=== PATIENT | male | born 1970 | race Asian ===

== ENCOUNTER 2019-08-21 01:09 | Emergency (ER) | payer MEDICAID ==
--- NOTE | 2019-08-21 12:54 | Emergency Department Report ---
ED Headache HPI - General Chief Complaint: Syncope Stated Complaint: SYNCOPAL EPISODE Time Seen by Provider: 08/21/19 12:49 Source: patient - History of Present Illness Initial Comments: 49 YO COMES TO ER COMPLAINING OF HEADACHE FOR 2 DAYS. NO N/V/PHOTOPHOBIA. PT DENIES PASSING OUT. NO INCONTINENCE. NO HX SZ. 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 PMH PTSD [facility]GERY LIVES IN CORRECTION RX RISPE. REMERON POS CIG OCC ETOH DENIES DRUGS NO TRAUMA. NO FEVER OR CHILLS. AMBULATORY AND NONTOXIC. HAS BEEN IN WAITING ROOM FOR CLOSE TO 11 HOURS ON MY EXAM. ON EXAM HE STATES PAIN IS GONE AND THERE IS NO FOCAL NEURO DEF. Allergies/Adverse Reactions: Allergies No Known Allergies Allergy (Unverified 08/21/19 14:24) ED Review of Systems ROS: Stated complaint: SYNCOPAL EPISODE Other details as noted in HPI Comment: All other systems reviewed and negative ED Past Medical Hx - Past Medical History Previous Medical History?: Yes Additional medical history: anurysm - Surgical History Past Surgical History?: Yes Additional Surgical History: facial reconstruction - Family History Family history: no significant - Social History Smoking Status: Current Every Day Smoker Substance Use Type: Alcohol ED Physical Exam - General Limitations: No Limitations General appearance: alert, in no apparent distress - Head Head exam: Present: atraumatic, normocephalic - Eye Eye exam: Present: normal appearance - ENT ENT exam: Present: mucous membranes moist - Neck Neck exam: Present: normal inspection - Respiratory Respiratory exam: Present: normal lung sounds bilaterally. Absent: respiratory distress - Cardiovascular Cardiovascular Exam: Present: regular rate, normal rhythm. Absent: systolic murmur, diastolic murmur, rubs, gallop - GI/Abdominal GI/Abdominal exam: Present: soft, normal bowel sounds - Rectal Rectal exam: Present: deferred - Extremities Exam Extremities exam: Present: normal inspection - Back Exam Back exam: Present: normal inspection - Neurological Exam Neurological exam: Present: alert, oriented X3 - Psychiatric Psychiatric exam: Present: normal affect, normal mood - Skin Skin exam: Present: warm, dry, intact, normal color. Absent: rash ED Course Vital Signs 08/21/19 01:28 Temperature 98.5 F Pulse Rate 85 Respiratory 18 Rate Blood Pressure 148/96 O2 Sat by Pulse 97 Oximetry ED Medical Decision Making - Lab Data Result diagrams: 08/21/19 13:29 08/21/19 13:29 - Radiology Data Radiology results: report reviewed, image reviewed - Medical Decision Making Labs 08/21/19 08/21/19 13:29 13:29 WBC 4.7 RBC 5.35 H Hgb 15.2 Hct 43.7 MCV 82 L MCH 28 MCHC 35 H RDW 13.5 Plt Count 180 Lymph % (Auto) 28.4 Lyman % (Auto) 13.6 H Eos % (Auto) 0.4 Baso % (Auto) 0.7 Lymph # 1.3 Lyman # 0.6 Eos # 0.0 Baso # 0.0 Seg Neutrophils % 56.9 Seg Neutrophils # 2.6 Sodium 140 Potassium 3.7 Chloride 101.6 Carbon Dioxide 23 Anion Gap 19 BUN 8 L Creatinine 0.8 Estimated GFR > 60 BUN/Creatinine Ratio 10 Glucose 86 Calcium 9.0 Total Bilirubin 0.60 AST 31 ALT 18 Alkaline Phosphatase 57 Total Protein 6.2 L Albumin 3.9 Albumin/Globulin Ratio 1.7 Vital Signs 08/21/19 01:28 Temperature 98.5 F Pulse Rate 85 Respiratory 18 Rate Blood Pressure 148/96 O2 Sat by Pulse [address] NEG LABS NOTED NO FOCAL DEFICIT ON RE-EXAM VSS DC HOME WITH FOLLOW UP WITH HIS DONNELL MD. AMBULATORY AND TAKING PO ON DC. Critical care attestation.: If time is entered above; I have spent that time in minutes in the direct care of this critically ill patient, excluding procedure time. ED Disposition Clinical Impression: Headache Disposition: DC-01 TO HOME OR SELFCARE Is pt being admited?: No Does the pt Need Aspirin: No Condition: Stable Instructions: Acute Headache (ED) Additional Instructions: motrin or tylenol for pain CT head normal today follow up with PCP next week should pain persists Referral below Referrals: LIZ SEAMAN MD [Staff Physician] - 3-5 Days Time of Disposition: 14:56
[2019-08-21 13:43] LABS: Basophils % (Auto) 0.7 % (0.0-1.8); Eosinophils % (Auto) 0.4 % (0.0-4.3); Hematocrit 43.7 % (35.5-45.6); Hemoglobin 15.2 gm/dl (11.8-15.2); Lymphocytes # (Auto) 1.3 K/mm3 (1.2-5.4); Lymphocytes % (Auto) 28.4 % (13.4-35.0); Mean Corpuscular HGB Conc 35 % (32-34); Mean Corpuscular Volume 82 fl (84-94); Monocytes # (Auto) 0.6 K/mm3 (0.0-0.8); Monocytes % (Auto) 13.6 % (0.0-7.3); Platelet Count 180 K/mm3 (140-440); Red Blood Count 5.35 M/mm3 (3.65-5.03); Red Cell Distribution Width 13.5 % (13.2-15.2)
[2019-08-21 14:06] LABS: Alanine Aminotransferase 18 units/L (7-56); Albumin 3.9 g/dL (3.9-5); BUN/Creatinine Ratio 10; Blood Urea Nitrogen 8 mg/dL (9-20); Hemolysis Index 2
--- NOTE | 2019-08-21 14:26 | Cat Scan Report ---
CT HEAD WITHOUT CONTRAST INDICATION / CLINICAL INFORMATION: Syncope. TECHNIQUE: Axial imaging performed from the skull apex through the skull base without the use of cont rast. Sagittal and coronal reformatted images. All CT scans at this location are performed using CT dose reduction for ALARA by means of automated exposure control. COMPARISON: None available. FINDINGS: CEREBRAL PARENCHYMA: No significant abnormality. No acute territorial infarct. HEMORRHAGE: None. EXTRA-AXIAL SPACES: Normal in size and morphology for the patient's age. VENTRICULAR SYSTEM: Normal in size and morphology for the patient's age. MIDLINE SHIFT OR HERNIATION: None. CEREBELLUM / BRAINSTEM: No significant abnormality. CALVARIUM: No significant abnormality. ORBITS: Previous surgical fixation of multiple left orbital, left nasal and left zygoma fractures are noted. PARANASAL SINUSES / MASTOID AIR CELLS: Normal as visualized. SOFT TISSUES of HEAD: No significant abnormality. ADDITIONAL FINDINGS: None. IMPRESSION: No acute intracranial process. Unremarkable CT of the brain parenchyma. Multiple chronic left facial fractures. Signer Name: Jeferson Lewis Jr, MD Signed: 08/21/2019 2:22 PM Workstation Name: [id number]
[2019-08-21 16:05] VITALS: BP 142/82
== END 2019-08-21 16:06 | disposition home or self-care (01) ==
LOC: ED 01:09
DX: R51 Headache (principal); F17.200 Nicotine dependence, unspecified, uncomplicated
CPT/HCPCS: 36415; 70450; 80053; 85025; 93005; 93010